=== PATIENT | female | born 1945 | race Caucasian/White ===

== ENCOUNTER 2016-07-09 15:01 | Emergency (ER) | payer OTHER ==
[~2016-07-09] VITALS: Ht 180.3 cm; Wt 110.8 kg
[2016-07-09] MEDS ORDERED: ULTRACET1 TABLET PO (17:23)
[2016-07-09 17:49] VITALS: BP 124/74
== END 2016-07-09 17:50 | disposition home or self-care (01) ==
LOC: EME → EDBD 15:01 → EME 17:50
DX: S16.1XXA Strain of muscle, fascia and tendon at neck level, initial encounter (principal); S80.02XA Contusion of left knee, initial encounter; S80.01XA Contusion of right knee, initial encounter; S29.012A Strain of muscle and tendon of back wall of thorax, initial encounter; V49.40XA Driver injured in collision with unspecified motor vehicles in traffic accident, initial encounter
CPT/HCPCS: 72040; 73564; 99281; 99284